=== PATIENT | male | born 1995 | race Caucasian/White ===

== ENCOUNTER 2019-04-26 09:08 | Emergency (ER) | payer BC ==
[~2019-04-26] VITALS: Ht 175.3 cm; Wt 135.0 kg
[~2019-04-26 09:08] MED LIST: CEPHALEXIN500 M1 OR
[2019-04-26 10:21] LABS: HEMATOCRIT 39.9 % (39.0-50.0); HEMOGLOBIN 13.2 g/dl (14.0-18.0); IMMATURE GRANULOCYTES 0.3 % (0.0-5.0); MEAN CELL VOLUME 87.5 fL CALC (80.0-100.0); MEAN CORPUSCULAR HGB 28.9 pG CALC (26.0-32.0); MEAN CORPUSCULAR HGB CONC 33.1 g/L CALC (32.0-36.0); NEUT# 3.61 thou/uL (1.82-7.42); RED BLOOD COUNT 4.56 mill/uL (4.70-6.10); RED CELL DISTRI WIDTH 13.5 % (11.5-15.5)
[2019-04-26 10:35] LABS: ALBUMIN 4.3 g/dL (3.2-5.0); ALKALINE PHOSPHATASE 95 u/l (38-126); ANION GAP 14 (6-22 (CALC)); BILIRUBIN, TOTAL 0.9 mg/dL (0.0-1.4); BUN 10 mg/dL (9-20); BUN/CREATININE RATIO 11 (12-20 (CALC)); CARBON DIOXIDE 23 mmol/l (22-30); CHLORIDE 107 mmol/l (95-108); CREATININE 0.9 mg/dL (0.7-1.3); GFR > 60 ML/MIN (>=60 (CALC)); GFR FOR AFR.AMER. > 60 ML/MIN (>=60 (CALC)); LIPASE 64 u/l (23-300); SGOT/AST 88 u/l (17-59); SODIUM 141 mmol/l (137-146); TOTAL PROTEIN 7.2 g/dL (6.3-8.2)
[2019-04-26] MEDS ORDERED: ONDANSETRON4 MG PO (12:55)
[2019-04-26] MEDS ORDERED: PROTONIX40 M2 PO (12:55)
[2019-04-26 13:27] VITALS: BP 120/72
== END 2019-04-26 13:27 | disposition home or self-care (01) | DRG 392 ==
LOC: ED 09:08
PROVIDERS: Emergency Medicine
DX: R10.84 Generalized abdominal pain (principal); R11.10 Vomiting, unspecified; R79.89 Other specified abnormal findings of blood chemistry
CPT/HCPCS: Q9967

== ENCOUNTER 2019-12-26 10:55 | Emergency (ER) | payer BC ==
[~2019-12-26 10:55] MED LIST changes: +ONDANSETRON4 MG PO; +PROTONIX40 M2 PO
[2019-12-26] MEDS ORDERED: CLONAZEPAM1 MG PO (11:16)
[2019-12-26] MEDS ORDERED: MEDDOSEPAK PO ×2 (11:38)
[2019-12-26] MEDS ORDERED: BACTROBAN TOP (11:38)
[2019-12-26 11:56] VITALS: BP 152/90
== END 2019-12-26 12:01 | disposition home or self-care (01) | DRG 607 ==
LOC: ED 10:55
DX: S50.862A Insect bite (nonvenomous) of left forearm, initial encounter (principal); S50.861A Insect bite (nonvenomous) of right forearm, initial encounter; S30.861A Insect bite (nonvenomous) of abdominal wall, initial encounter; W57.XXXA Bitten or stung by nonvenomous insect and other nonvenomous arthropods, initial encounter

== ENCOUNTER 2020-07-01 05:01 | Emergency (ER) | payer BC ==
[~2020-07-01] VITALS: Ht 180.3 cm; Wt 145.5 kg
[~2020-07-01 05:01] MED LIST changes: +BACTROBAN TOP; +CLONAZEPAM1 MG PO; +MEDDOSEPAK PO
[2020-07-01 06:14] VITALS: BP 116/71
== END 2020-07-01 06:14 | disposition home or self-care (01) | DRG 605 ==
LOC: ED 05:01
PROC: 0HQDXZZ Repair Right Lower Arm Skin, External Approach (ICD-10-PCS; principal; 2020-07-01)
DX: S51.811A Laceration without foreign body of right forearm, initial encounter (principal); S61.012A Laceration without foreign body of left thumb without damage to nail, initial encounter; W25.XXXA Contact with sharp glass, initial encounter; Y93.89 Activity, other specified; Y92.009 Unspecified place in unspecified non-institutional (private) residence as the place of occurrence of the external cause

== ENCOUNTER 2021-03-14 23:53 | Emergency (ER) | payer BC ==
[~2021-03-14] VITALS: Ht 177.8 cm; Wt 145.0 kg
[2021-03-15] MEDS ORDERED: MOTRIN800 MG PO (01:13)
[2021-03-15] MEDS ORDERED: KEFLEX500 MG PO (01:13)
[2021-03-15 01:52] VITALS: BP 138/78
[2021-03-15] MEDS ORDERED: VITAMIN D PO (03:24)
[2021-03-15] MEDS ORDERED: FOLIC ACID1 MG PO (03:25)
== END 2021-03-15 01:52 | disposition home or self-care (01) | DRG 605 ==
LOC: ED 23:53
DX: S60.221A Contusion of right hand, initial encounter (principal); S60.511A Abrasion of right hand, initial encounter; F31.9 Bipolar disorder, unspecified; F41.9 Anxiety disorder, unspecified; W22.09XA Striking against other stationary object, initial encounter; Y92.009 Unspecified place in unspecified non-institutional (private) residence as the place of occurrence of the external cause

== ENCOUNTER 2021-05-15 23:35 | Emergency (ER) | payer BC ==
[~2021-05-15] VITALS: Ht 180.3 cm; Wt 136.0 kg
[~2021-05-15 23:35] MED LIST changes: +FOLIC ACID1 MG PO; +KEFLEX500 MG PO; +MOTRIN800 MG PO; +VITAMIN D PO
[2021-05-16] MEDS ORDERED: NAPROXEN500 MG PO (02:18)
[2021-05-16 02:30] VITALS: BP 137/85
== END 2021-05-16 02:35 | disposition home or self-care (01) | DRG 103 ==
LOC: ED 23:35
DX: G44.209 Tension-type headache, unspecified, not intractable (principal); K08.89 Other specified disorders of teeth and supporting structures; F31.9 Bipolar disorder, unspecified; F41.9 Anxiety disorder, unspecified; Z86.16 Personal history of COVID-19

== ENCOUNTER 2022-04-29 12:23 | Emergency (ER) | payer BC ==
[~2022-04-29] VITALS: Ht 180.3 cm; Wt 171.8 kg
[~2022-04-29 12:23] MED LIST changes: +NAPROXEN500 MG PO
[2022-04-29 16:07] VITALS: BP 136/87
== END 2022-04-29 16:55 | disposition home or self-care (01) | DRG 866 ==
LOC: ED 12:23
DX: B34.9 Viral infection, unspecified (principal); F31.9 Bipolar disorder, unspecified; F41.9 Anxiety disorder, unspecified; Z86.16 Personal history of COVID-19; Z20.822 Contact with and (suspected) exposure to COVID-19

== ENCOUNTER 2022-08-20 03:13 | Emergency (ER) | payer BC ==
[2022-08-20 03:45] VITALS: BP 134/74
[2022-08-20 05:52] LABS: HEMATOCRIT 40.6 % (39.0-50.0); HEMOGLOBIN 13.5 g/dl (14.0-18.0); IMMATURE GRANULOCYTES 0.6 % (0.0-5.0); MEAN CELL VOLUME 89.4 fL CALC (80.0-100.0); MEAN CORPUSCULAR HGB 29.7 pG CALC (26.0-32.0); MEAN CORPUSCULAR HGB CONC 33.3 g/dL CAL (32.0-36.0); NEUT# 9.6 thou/uL (1.82-7.42); RED BLOOD COUNT 4.54 mill/uL (4.70-6.10); RED CELL DISTRI WIDTH 12.8 % (11.5-15.5)
[2022-08-20 05:55] LABS: ALBUMIN 4.4 g/dL (3.2-5.0); ALKALINE PHOSPHATASE 104 u/l (38-126); BUN 15 mg/dL (9-20); BUN/CREATININE RATIO 16 (12-20 (CALC)); CHLORIDE 105 mmol/l (95-108); CREATININE 0.9 mg/dL (0.7-1.3); GFR FOR AFR.AMER. > 60 ML/MIN (>=60 (CALC)); GFR OTHER RACES > 60 ML/MIN (>=60 (CALC)); POTASSIUM 3.2 mmol/l (3.5-5.1); SGOT/AST 64 u/l (17-59); SODIUM 138 mmol/l (137-146); TOTAL PROTEIN 7.8 g/dL (6.3-8.2)
[2022-08-20 05:56] LABS: ANION GAP 8 (6-22 (CALC)); BILIRUBIN, TOTAL 0.3 mg/dL (0.0-1.4); CARBON DIOXIDE 28 mmol/l (22-30)
[2022-08-20] MEDS ORDERED: ISENTRESS100 MG PO (06:31)
[2022-08-20] MEDS ORDERED: COMBIVIR 1501 COMBO PO (06:31)
== END 2022-08-20 06:57 | disposition home or self-care (01) | DRG 605 ==
LOC: ED 03:38
PROVIDERS: Emergency Medicine
DX: S00.93XA Contusion of unspecified part of head, initial encounter (principal); S10.91XA Abrasion of unspecified part of neck, initial encounter; F31.9 Bipolar disorder, unspecified; F41.9 Anxiety disorder, unspecified; Y04.2XXA Assault by strike against or bumped into by another person, initial encounter; Z77.21 Contact with and (suspected) exposure to potentially hazardous body fluids; Z86.16 Personal history of COVID-19